=== PATIENT | male | born 1955 | race Caucasian/White ===

== ENCOUNTER 2016-06-21 12:18 | Emergency (ER) | payer SELFPAY ==
[~2016-06-21] VITALS: Ht 180.3 cm; Wt 95.0 kg
[~2016-06-21 12:18] MED LIST: BACT2OIN TOP; BACT800T5 PO; CLIN150 PO
[2016-06-21 12:20] VITALS: BP 145/74; PULSE 72; RESP 16; TEMP 98; O2SAT 96
[2016-06-21] MEDS ORDERED: LIDOCAINE 1%/EPINEPHrine 1:100,000 SOLN 20 ML VIAL INFIL ONE (13:00)
--- NOTE | 2016-06-21 13:03 | PD ---
HPI Chief Complaint: Skin Problem Time Seen by Provider: 12:58 Travel History International Travel<30 days: No Contact w/Intl Traveler<30days: No Traveled to known affect area: No History of Present Illness HPI 60-year-old male presents to the emergency room for evaluation of 3 abscesses on his left posterior forearm. Patient first noticed the largest one about 2 weeks ago. States about 3 days ago developed a large ramos and drained a large amount of pus. About 1 week ago he noticed the other 2 abscesses nearby. States they have been "done much." He has been applying hydrogen peroxide without relief. Denies fever, chills, nausea, vomiting, and streaking. PFSH Past Medical History Diabetes: No Immune Disorder: No Social History Alcohol Use: No Tobacco Use: No Substance Use: No Allergies-Medications (Allergen,Severity, Reaction): Coded Allergies: *MDRO Multi-Drug Resistant Organism (Verified Adverse Reaction, Unknown, ) MRSA (groin wound) - 12/29/15 Reported Meds & Prescriptions Reported Meds & Active Scripts Active No Active Prescriptions or Reported Medications Review of Systems Except as stated in HPI: all other systems reviewed are Neg Physical Exam Narrative GENERAL: Well-nourished, well-developed male in no acute distress. Afebrile. Ambulatory. SKIN: Warm and dry. There is an indurated area in the left posterior forearm which measures about 2 cm in diameter. It is fluctuant with clear drainage. There is a zone of inflammation around it but no lymphangitis. There are 2 other 1 cm areas of induration on the left posterior forearm that are fluctuant but without pointing or drainage. There is no surrounding inflammation or lymphangitis. HEAD: Normocephalic. EYES: No scleral icterus. No injection or drainage. NECK: Supple, trachea midline. No JVD or lymphadenopathy. Data Data Last Documented VS Vital Signs Date Time Temp Pulse Resp B/P Pulse Ox O2 Delivery O2 Flow Rate FiO2 06/21/16 12:20 98.0 72 16 145/74 96 Room Air Orders Lidocai-Epi 1%-1:100,000 Inj (Xylocaine- (06/21/16 13:00) MDM Medical Decision Making Medical Screen Exam Complete: Yes Emergency Medical Condition: Yes Medical Record Reviewed: Yes Differential Diagnosis Abscess versus folliculitis versus cellulitis Narrative Course 60-year-old male presents to the emergency room for evaluation of 3 1- 2 cm abscesses in the left posterior forearm that began about 2 weeks ago. The largest of which began to spontaneously drain 3 days ago. There is very limited inflammation and no lymphangitis. No systemic signs of infection. Vital signs stable. The other 2 abscesses were drained, see procedure note for details. Patient discharged with Bactrim and told to follow up with PCP or return for worsening symptoms. He understands and agrees to plan. Procedures Procedure Narrative INCISION AND DRAINAGE OF ABSCESS: The area was prepped and was sterilely draped. A subcutaneous wheal of 1% lidocaine with epinephrine with a total number 1 mL was used to anesthetize the area properly. A number 11 scalpel was used to make a 1 cm incision across the area of the abscess. The abscess was drained, complex loculations were broken down, and irrigated with normal saline. Sterile dressing applied. INCISION AND DRAINAGE OF ABSCESS: The area was prepped and was sterilely draped. A subcutaneous wheal of 1% lidocaine with epinephrine with a total number 1 mL was used to anesthetize the area properly. A number 11 scalpel was used to make a 1 cm incision across the area of the abscess. The abscess was drained, complex loculations were broken down, and irrigated with normal saline. Sterile dressing applied. Diagnosis Primary Impression: Abscess of left upper extremity Referrals: Primary Care Physician Patient Instructions: Abscess (ED), General Instructions Additional Instructions: Rest and drink plenty of fluids. Take Bactrim as directed, until gone. Follow up with a primary care physician. Return to emergency room for worsening symptoms, as discussed. Med/Other Pt SpecificInfo: Prescription(s) given Scripts No Active Prescriptions or Reported Meds Disposition: 01 DISCHARGE HOME Condition: Stable Bindu Valencia Jun 21, 2016 13:03
[2016-06-21] MEDS ORDERED: BACT800T5 PO (13:35)
== END 2016-06-21 13:35 | disposition home or self-care (01) ==
LOC: NEPB 12:18
DX: L02.414 Cutaneous abscess of left upper limb (principal)
CPT/HCPCS: 10061

== ENCOUNTER 2017-02-22 13:05 | Emergency (ER) | payer SELFPAY ==
[~2017-02-22] VITALS: Ht 180.3 cm; Wt 98.0 kg
[~2017-02-22 13:05] MED LIST changes: -BACT2OIN TOP; -CLIN150 PO
[2017-02-22 13:07] VITALS: BP 150/86; PULSE 80; RESP 20; TEMP 98.7; O2SAT 98
--- NOTE | 2017-02-22 14:08 | PD ---
HPI Chief Complaint: ENT Complaint Time Seen by Provider: 13:58 Travel History International Travel<30 days: No Contact w/Intl Traveler<30days: No Traveled to known affect area: No History of Present Illness HPI 61-year-old male here for evaluation of sore throat. Symptoms started 5 days ago. It hurts to swallow. He reports occasional right ear discomfort as well as a dry nonproductive cough. He reports subjective fevers but the highest temperature that he is recorded at home is 99. Denies recent travel, rash, sick contacts. He has no other complaints at this time. [facility] Past Medical History Diabetes: No Immune Disorder: No Social History Alcohol Use: No Tobacco Use: No Substance Use: No Allergies-Medications (Allergen,Severity, Reaction): Coded Allergies: *MDRO Multi-Drug Resistant Organism (Verified Adverse Reaction, Unknown, ) MRSA (groin wound) - 12/29/15 Reported Meds & Prescriptions Reported Meds & Active Scripts Active Bactrim DS (Sulfamethoxazole-Trimethoprim) 800-160 Mg Tab 1 Tab PO BID Review of Systems Except as stated in HPI: all other systems reviewed are Neg Physical Exam Narrative GENERAL: Well-developed well-nourished male in no acute distress SKIN: Warm and dry. HEAD: Atraumatic. Normocephalic. EYES: Pupils equal and round. No scleral icterus. No injection or drainage. ENT: No nasal bleeding or discharge. Mucous membranes pink and moist. There is no oropharyngeal erythema or exudate. Tympanic membrane bilaterally. Normal. NECK: Trachea midline. No JVD. There is no lymphadenopathy. CARDIOVASCULAR: Regular rate and rhythm. No murmur appreciated. RESPIRATORY: No accessory muscle use. Clear to auscultation. Breath sounds equal bilaterally. Data Data Last Documented VS Vital Signs Date Time Temp Pulse Resp B/P (MAP) Pulse Ox O2 Delivery O2 Flow Rate FiO2 02/22/17 13:07 98.7 80 20 150/86 (107) 98 Room Air Orders Orders Group A Rapid Strep Screen (02/22/17 14:03) Strep Culture (Group A) (02/22/17 14:10) MDM Medical Decision Making Medical Screen Exam Complete: Yes Emergency Medical Condition: Yes Medical Record Reviewed: Yes Differential Diagnosis Pharyngitis, tonsillitis, peritonsillar abscess, infectious mononucleosis, herpangina, epiglottitis, retropharyngeal abscess, bronchitis, pneumonia, influenza, otitis media Narrative Course 61-year-old male here with 5 days of sore throat as well as a dry nonproductive cough. Physical examination is unremarkable. Suspect viral pharyngitis. Rapid strep screen was performed and was negative. Recommended supportive care. He is stable for discharge. Diagnosis Primary Impression: Pharyngitis Qualified Codes: J02.9 - Acute pharyngitis, unspecified Additional Instructions: Stay well hydrated well-nourished, get plenty of rest. Tylenol or Motrin for pain per dosing instructions on the bottle. Return for any emergent medical conditions. Med/Other Pt SpecificInfo: No Change to Meds Disposition: 01 DISCHARGE HOME Condition: Stable Dom Connell Feb 22, 2017 14:08
== END 2017-02-22 15:07 | disposition home or self-care (01) ==
LOC: NEPK 13:05
DX: J02.9 Acute pharyngitis, unspecified (principal)
CPT/HCPCS: 87081; 87880; 99283

== ENCOUNTER 2017-05-15 10:54 | Emergency (ER) | payer SELFPAY ==
[~2017-05-15] VITALS: Ht 180.3 cm; Wt 100.0 kg
[2017-05-15 10:55] VITALS: BP 155/88; PULSE 95; RESP 18; TEMP 99.6; O2SAT 97
--- NOTE | 2017-05-15 12:37 | PD ---
HPI Chief Complaint: Cold / Flu Symptoms Time Seen by Provider: 12:15 Travel History International Travel<30 days: No Contact w/Intl Traveler<30days: No Traveled to known affect area: No History of Present Illness HPI Patient is a 61-year-old male who presents to emergency room with complaints of productive cough, congestion for the past week. Patient reports that him as well as as his is sick with similar symptoms. Reports that he initially started with a postnasal drip and increased nasal congestion, slight to of productive cough and chest congestion. Patient reports subjective fevers and chills, reports that he last took Tylenol last night. Patient reports that he does not have a thermometer at home, did not take his temperature. Patient reports no recent travels or trips, patient with no chest pain or shortness of breath at this time. Patient is a nonsmoker, reports no medical problems. PFSH Past Medical History Medical History: Denies Significant Hx Diabetes: No Immune Disorder: No Past Surgical History Surgical History: No Previous Surgery Social History Alcohol Use: No Tobacco Use: No Substance Use: No Allergies-Medications (Allergen,Severity, Reaction): Coded Allergies: *MDRO Multi-Drug Resistant Organism (Verified Adverse Reaction, Unknown, 05/15/17) MRSA (groin wound) - 12/29/15 Reported Meds & Prescriptions Reported Meds & Active Scripts Active No Active Prescriptions or Reported Medications Review of Systems General / Constitutional: Positive: Fever, Chills Eyes: No: Visual changes HENT: No: Headaches Cardiovascular: No: Chest Pain or Discomfort, Palpitations, Irregular Rhythm, Tachycardia, Diaphoresis Respiratory: Positive: Cough, No: Shortness of Breath, Wheezing, Sneezing Gastrointestinal: No: Abdominal Pain Genitourinary: No: Dysuria Musculoskeletal: No: Pain Skin: No Rash Neurologic: No: Weakness Psychiatric: No: Depression Endocrine: No: Polydipsia Hematologic/Lymphatic: No: Easy Bruising Physical Exam Narrative GENERAL: Mild distress SKIN: Focused skin assessment warm/dry. HEAD: Atraumatic. Normocephalic. EYES: Pupils equal and round. No scleral icterus. No injection or drainage. ENT: No nasal bleeding or discharge. Mucous membranes pink and moist. NECK: Trachea midline. No JVD. CARDIOVASCULAR: Regular rate and rhythm. No murmur appreciated. RESPIRATORY: No accessory muscle use. Patient with scattered wheezing to his lungs bilaterally. Breath sounds equal bilaterally. GASTROINTESTINAL: Abdomen soft, non-tender, nondistended. Hepatic and splenic margins not palpable. MUSCULOSKELETAL: No obvious deformities. No clubbing. No cyanosis. No edema. NEUROLOGICAL: Awake and alert. No obvious cranial nerve deficits. Motor grossly within normal limits. Normal speech. PSYCHIATRIC: Appropriate mood and affect; insight and judgment normal. Data Data Last Documented VS Vital Signs Date Time Temp Pulse Resp B/P (MAP) Pulse Ox O2 Delivery O2 Flow Rate FiO2 05/15/17 13:05 21 05/15/17 10:55 99.6 95 18 155/88 (110) 97 Orders Orders Influenzae A/B Antigen (05/15/17 11:50) Chest, Pa & Lat (05/15/17 11:50) Albuterol-Ipratropium Neb (Duoneb Neb) (05/15/17 12:45) Prednisone (Deltasone) (05/15/17 12:45) Azithromycin (Zithromax) (05/15/17 13:15) MDM Medical Decision Making Medical Screen Exam Complete: Yes Emergency Medical Condition: Yes Medical Record Reviewed: Yes Interpretation(s) Vital Signs Date Time Temp Pulse Resp B/P (MAP) Pulse Ox O2 Delivery O2 Flow Rate FiO2 05/15/17 10:55 99.6 95 18 155/88 (110) 97 Microbiology Date/Time Source Procedure Growth Status 05/15/17 11:55 Nasal Aspirate Influenza Types A,B Antigen (JOANNA) - Final NEGATIVE FOR FLU A AND B ANTIGEN.... Complete Differential Diagnosis Acute bronchitis, pneumonia, influenza, viral syndrome Narrative Course During the course of the patients emergency department visit, the patients history, examination, and differential diagnosis were reviewed with the patient. The patient was placed on a child monitor with oximetry and frequent blood pressure monitoring. The patient was initially provided oral steroids as well as nebulizer treatments. The patients laboratory studies were reviewed and remarkable for : Negative for influenza Radiology studies were reviewed and remarkable for: Last Impressions Chest X-Ray 05/15/17 1150 Signed Impressions: Service Date/Time: Monday, May 15, 2017 12:33 - CONCLUSION: No acute disease. Harish Montgomery MD Patient feeling much better after nebulizer treatment was given to him. Influenza was negative, x-ray of the chest showed no obvious pneumonia. Patient with most likely acute bronchitis. Plan for patient to be discharged home with a prescription with azithromycin, steroids and well as proair inhaler. He will follow up with his primary care doctor and will return to the emergency room as needed. Patient thankful for care Diagnosis Primary Impression: Bronchitis Patient Instructions: General Instructions Additional Instructions: Please follow up with your primary care doctor in 2-3 days Return to the ER if symptoms worsen or progress Return to the ER as needed Please drink plenty of fluids Take all medications as prescribed Med/Other Pt SpecificInfo: Prescription(s) given Scripts Prednisone (Prednisone) 20 Mg Tab 20 MG PO BID for 5 Days, #10 TAB 0 Refills Prov: Tami Umanzor DO 05/15/17 Albuterol 8.5 GM Inh (Proair Hfa 8.5 GM Inh) 90 Mcg/Act Aer 2 PUFF INH Q4-6H Y for SHORTNESS OF BREATH, #1 INHALER 0 Refills 108 mcg/actuation Prov: Tami Umanzor DO 05/15/17 Azithromycin (Azithromycin) 500 Mg Tab 500 MG PO DAILY for Infection, #5 TAB 0 Refills Prov: Tami Umanzor DO 05/15/17 Disposition: 01 DISCHARGE HOME Condition: Stable Tami Umanzor DO May 15, 2017 12:37
[2017-05-15] MEDS: RESP: ALBUTEROL 2.5 MG/IPRATROPIUM 0.5 MG NEB (SCH) INH ×3 (12:45→13:04)
[2017-05-15] MEDS ORDERED: predniSONE 20 MG TAB PO ONE (12:45)
--- NOTE | 2017-05-15 13:00 | RADRPT ---
EXAM DATE/TIME: 05/15/2017 12:33 [facility] COMPARISON: No previous studies available for comparison. INDICATIONS : Cough and Short of Breath MEDICAL HISTORY : None. SURGICAL HISTORY : None. ENCOUNTER: Initial ACUITY: 1 week PAIN SCORE: 0/10 LOCATION: Bilateral chest FINDINGS: PA and lateral views of the chest demonstrate the lungs to be symmetrically aerated without evidence of mass, infiltrate or effusion. The cardiomediastinal contours are unremarkable. Osseous structure s are intact. CONCLUSION: No acute disease. Harish Montgomery MD on May 15, 2017 at 12:57 Board Certified Radiologist. This report was verified electronically.
[2017-05-15] MEDS ORDERED: AZITHROMYCIN 250 MG TAB PO ONE (13:15)
[2017-05-15] MEDS ORDERED: AZIT500T2 PO (14:04)
[2017-05-15] MEDS ORDERED: ALBUAER3 INH (14:04)
[2017-05-15] MEDS ORDERED: PRED20 PO (14:04)
== END 2017-05-15 14:24 | disposition home or self-care (01) ==
LOC: NEPD 10:54
DX: J40 Bronchitis, not specified as acute or chronic (principal)
CPT/HCPCS: 71020; 87804; 94640; 94664; 99285; J7512

== ENCOUNTER 2017-08-20 11:24 | Emergency (ER) | payer SELFPAY ==
[~2017-08-20] VITALS: Ht 180.3 cm; Wt 101.0 kg
[~2017-08-20 11:24] MED LIST changes: +ALBUAER3 INH; +AZIT500T2 PO; -BACT800T5 PO; +PRED20 PO
[2017-08-20 11:30] VITALS: BP 164/94; PULSE 86; RESP 18; TEMP 98.6; O2SAT 97
--- NOTE | 2017-08-20 12:32 | PD ---
HPI Chief Complaint: Facial Pain or Swelling Time Seen by Provider: 12:23 Travel History International Travel<30 days: No Contact w/Intl Traveler<30days: No Traveled to known affect area: No History of Present Illness HPI 62-year-old male with history of MRSA. Patient comes in with painful swelling to the right lower lateral lip. Patient thinks he may have cut himself shaving Wednesday and since that time has gotten increased pain and swelling without significant drainage. He denies fever or chills. It has worsened in the last 2 days. Patient denies lesions in the mouth or difficulty swallowing. He has no medication allergies. PFSH Past Medical History Diabetes: No Immune Disorder: No Integumentary: Yes (MRSA, HAD WOUND ON HIS LEG ) Social History Alcohol Use: No Tobacco Use: No Substance Use: No Allergies-Medications (Allergen,Severity, Reaction): Coded Allergies: *MDRO Multi-Drug Resistant Organism (Verified Adverse Reaction, Unknown, ) MRSA (groin wound) - 12/29/15 Reported Meds & Prescriptions Reported Meds & Active Scripts Active Ibuprofen 600 Mg Tab 600 Mg PO Q8H PRN Bactroban Topical (Mupirocin) 22 Gm Cream 1 Applic TOPICAL BID Bactrim DS (Sulfamethoxazole-Trimethoprim) 800-160 Mg Tab 1 Tab PO BID Review of Systems Except as stated in HPI: all other systems reviewed are Neg General / Constitutional: No: Fever Eyes: No: Visual changes HENT: No: Headaches Cardiovascular: No: Chest Pain or Discomfort Respiratory: No: Shortness of Breath Gastrointestinal: No: Abdominal Pain Genitourinary: No: Dysuria Musculoskeletal: No: Pain Skin: Positive Lesions (See history of present illness per), No Rash Neurologic: No: Weakness Psychiatric: No: Depression Endocrine: No: Polydipsia Hematologic/Lymphatic: No: Easy Bruising Physical Exam Narrative GENERAL: Patient appears in no acute distress per SKIN: Warm and dry. Normal color. Normal turgor. Patient has swelling and mild erythema to the right lower lateral lip. There is a small almost pimple- like lesion below the vermilion border. The total size is approximately 2 cm in diameter. There is no draining lesion. There is no streaking. HEAD: Atraumatic. Normocephalic. EYES: Pupils equal and round. No scleral icterus. No injection or drainage. ENT: No nasal bleeding or discharge. Mucous membranes pink and moist. Pharynx is clear. Airways patent. Buccal membranes unremarkable. TMs are clear bilaterally. No dental injury. NECK: Trachea midline. Supple and nontender without lymphadenopathy. CARDIOVASCULAR: Regular rate and rhythm. RESPIRATORY: No accessory muscle use. Clear to auscultation. Breath sounds equal bilaterally. GASTROINTESTINAL: Abdomen soft, non-tender, nondistended. Hepatic and splenic margins not palpable. MUSCULOSKELETAL: Extremities without clubbing, cyanosis, or edema. No obvious deformities. NEUROLOGICAL: Awake and alert. No obvious cranial nerve deficits. Motor grossly within normal limits. Five out of 5 muscle strength in the arms and legs. Normal speech. PSYCHIATRIC: Appropriate mood and affect; insight and judgment normal. Data Data Last Documented VS Vital Signs Date Time Temp Pulse Resp B/P (MAP) Pulse Ox O2 Delivery O2 Flow Rate FiO2 08/20/17 11:30 98.6 86 18 164/94 (117) 97 Orders Orders Clindamycin Inj (Cleocin Inj) (08/20/17 12:45) Ibuprofen (Motrin) (08/20/17 12:45) [facility] Medical Decision Making Medical Screen Exam Complete: Yes Emergency Medical Condition: Yes Medical Record Reviewed: Yes Differential Diagnosis Cellulitis. MRSA. Right lower lip injury. Narrative Course Patient is medically stable at time of exam. Patient is given 800 mg ibuprofen p.o. Patient is given 600 mg clindamycin IM. Patient continued on Bactrim DS twice daily 7 days. Patient is given Bactroban to use topically twice daily. Patient is given ibuprofen 600 mg 3 times daily #30. Patient to return if symptoms worsen as discussed. Diagnosis Primary Impression: Cellulitis of lip Patient Instructions: General Instructions, MRSA (Methicillin-Resistant Staphylococcus Aureus) (ED) Additional Instructions: Patient continued on Bactrim DS twice daily 7 days. Patient is given Bactroban to use topically twice daily. Patient is given ibuprofen 600 mg 3 times daily #30. Patient to return if symptoms worsen as discussed. Med/Other Pt SpecificInfo: Prescription(s) given Scripts Ibuprofen (Ibuprofen) 600 Mg Tab 600 MG PO Q8H Y for PAIN, #30 TAB 0 Refills Prov: Gomez Palomo MD 08/20/17 Mupirocin Topical (Bactroban Topical) 22 Gm Cream 1 APPLIC TOPICAL BID for Mgmt Bacterial Infection, #1 TUBE 0 Refills Prov: Gomez Palomo MD 08/20/17 Sulfamethoxazole-Trimethoprim (Bactrim DS) 800-160 Mg Tab 1 TAB PO BID for Infection, #14 TAB 0 Refills Prov: Gomez Palomo MD 08/20/17 Disposition: 01 DISCHARGE HOME Condition: Stable Adán Sylvester Aug 20, 2017 12:32
[2017-08-20] MEDS ORDERED: BACT800T5 PO (12:34)
[2017-08-20] MEDS ORDERED: MUPI2%T TOPICAL (12:34)
[2017-08-20] MEDS ORDERED: IBUP-232 PO (12:34)
[2017-08-20] MEDS ORDERED: CLINDAMYCIN PHOS 600 MG/4 ML VIAL IM ONE (12:45)
[2017-08-20] MEDS ORDERED: IBUPROFEN 800 MG TAB PO ONE (12:45)
== END 2017-08-20 13:28 | disposition home or self-care (01) ==
LOC: NEPD 11:24
DX: K13.0 Diseases of lips (principal)
CPT/HCPCS: 96372